=== PATIENT | female | born 1960 | race Caucasian/White ===

== ENCOUNTER 2016-08-24 15:53 | Emergency (ER) | payer OTHER ==
[~2016-08-24] VITALS: Ht 160 cm; Wt 72.0 kg
[~2016-08-24 15:53] MED LIST: AMO500 PO; IBUP-1542 PO; IBUP400T22 PO; MELO7.5O PO
[2016-08-24 16:02] VITALS: Ht 160 cm; Wt 72.0 kg
[2016-08-24] MEDS ORDERED: AMO500 PO (16:22)
[2016-08-24] MEDS ORDERED: LORA-186 PO (16:23)
--- NOTE | 2016-08-24 16:35 | ERD ---
ER Documentation Chief Complaint Date/Time DATE: 08/24/16 TIME: 16:33 Chief Complaint pt bib self with c/o WASSERMAN, eye pressure, sore throat, cough for 5 days HPI Patient is a 55-year-old female who presents with cough, sore throat, and at night she states she gets very watery eyes. For the past 5 days. She has been taking Motrin but she continues to have symptoms. She is not sure if she has had a fever. She denies any nausea or vomiting or diarrhea. She is tolerating oral intake. Denies any chest pain or shortness of breath. Cough is dry and worse at night. ROS All systems reviewed and are negative except as per history of present illness. Medications Home Meds Active Scripts Loratadine* (Claritin*) 10 Mg Tablet, 10 MG PO DAILY, #30 TAB Prov:BRENDA CHEN PA-C 08/24/16 Amoxicillin* (Amoxicillin*) 500 Mg Cap, 500 MG PO BID, #14 CAP Prov:BRENDA CHEN PA-C 08/24/16 Amoxicillin* (Amoxicillin*) 500 Mg Cap, 500 MG PO TID for 10 Days, CAP Prov:JOSHUA KENNEDY MD 12/23/15 Ibuprofen* (Motrin*) 600 Mg Tab, 600 MG PO Q6H Y for PAIN AND OR ELEVATED TEMP, #30 TAB Prov:JOSHUA KENNEDY MD 12/23/15 Reported Medications Ibuprofen* (Ibuprofen*) 400 Mg Tablet, 400 MG PO Q6H Y for PAIN, TAB 12/23/15 Meloxicam* (Meloxicam*) 7.5 Mg/5 Ml Oral.susp, 15 MG PO DAILY, #300 ML 12/23/15 Allergies Allergies: Coded Allergies: No Known Drug Allergies (Verified Allergy, Unknown, 12/23/15) No Known Drug Allergy (Verified Allergy, Unknown, 12/23/15) PMhx/Soc History of Surgery: Yes (ovarian surgery) Anesthesia Reaction: No Hx Neurological Disorder: No Hx Respiratory Disorders: No Hx Cardiac Disorders: No Hx Psychiatric Problems: No Hx Miscellaneous Medical Probl: No Hx Alcohol Use: No Hx Substance Use: No Hx Tobacco Use: No FmHx Family History: No diabetes Physical Exam Vitals Vital Signs Date Time Temp Pulse Resp B/P Pulse Ox O2 Delivery O2 Flow Rate FiO2 08/24/16 16:02 98.0 60 16 140/63 98 Physical Exam General: well developed, well nourished, alert, nontoxic, no distress Head: normocephalic, atraumatic Eyes: PERRL, normal conjunctiva Neck: Supple, nontender, no lymphadenopathy, no midline tenderness Oropharynx: no tonsilar erythema or edema, uvula midline, no exudates, no kissing tonsils, no drooling Respiratory: Clear to auscaultation bilaterally, speaks in full sentences, no use of accesory muscles or labored breathing, no rales, ronchi, or wheezing Cardiovascular: RRR, No murmurs GI: soft, non tender, non distended, negative murphys sign, negative mcburneys point tenderness, no cva tenderness bilaterally, no rebound or guarding Back: no midline tenderness, no step offs or bony abnormalities, sensation to light touch in tact Procedures/MDM 55-year-old female presents with upper respiratory infection including sore throat and cough and watery eyes. She is well-appearing in no distress and her vital signs are within normal limits. She was discharged with Claritin as well as a [id number] prescription for amoxicillin but I recommended she only begin this if her symptoms worsen including fever and worsening of cough or sore throat. Recommended this patient follow up with her primary care doctor within 48 hours or return to the emergency room for any worsening of symptoms. However this time I do believe there is suitable for outpatient management. I answered all their questions and they agreed with the plan and were discharged home. Departure Diagnosis: Primary Impression: Pharyngitis Additional Impression: Upper respiratory infection Condition: Stable Patient Instructions: Preventing Common Respiratory Infections Additional Instructions: Llame al doctor ESDRAS y yvette anirudh LEANN PARA DENTRO DE 1-2 LOPEZ.Dgale a la secretaria que nosotros le instruimos hacer esta leann.Avise o llame si castillo condicin se empeora antes de la leann. Regresa aqui si peor o no mejor. BRENDA CHEN PA-C Aug 24, 2016 16:35
== END 2016-08-24 16:23 | disposition home or self-care (01) ==
LOC: E/R 15:53
DX: J02.9 Acute pharyngitis, unspecified (principal); J06.9 Acute upper respiratory infection, unspecified
CPT/HCPCS: 99283